=== PATIENT | male | born 1995 | race Caucasian/White ===

== ENCOUNTER 2017-02-10 14:59 | Emergency (ER) | payer OTHER ==
[~2017-02-10] VITALS: Ht 170.2 cm; Wt 56.7 kg
--- NOTE | 2017-02-10 15:00 | NUR ---
BB ROOMATE c/O SUICIDAL THOUGHTS NO PLANS DENIES HI, NAD NOTED, VSS, DR TREVINO AT , BLOOD AND URINE SAMPLE SENT TO LAB.
[2017-02-10] MEDS ORDERED: LORAZEPAM 1 MG TABLET ONE (15:30)
[2017-02-10] MEDS ORDERED: LORAZEPAM 1 MG TABLET PO ONE (15:30)
[2017-02-10 15:43] LABS: ALCOHOL, BLOOD < 3 mg/dL (0-0); CALCIUM, SERUM 10.4 mg/dL (8.5-10.1); CARBON DIOXIDE 24 mmol/L (21-32); CHLORIDE 99 mmol/L (98-107); CREATININE 0.9 mg/dL (0.6-1.3); GLUCOSE 109 mg/dL (74-106); POTASSIUM 3.6 mmol/L (3.5-5.1); SODIUM SERUM 137 mmol/L (136-145); UREA NITROGEN, BLOOD 12 mg/dL (7-18)
[2017-02-10 15:56] LABS: BASOPHILS # (AUTO) 0.1 /CMM (0.0-0.2); BASOPHILS % (AUTO) 1.7 % (0.0-2.0); HEMATOCRIT 48 % (39-51); HEMOGLOBIN 16.4 g/dL (13.5-17.5); LYMPHOCYTES # (AUTO) 1.1 /CMM (0.8-4.8); LYMPHOCYTES % (AUTO) 12.8 % (20.0-44.0); MEAN CORPUSCULAR HEMOGLOBIN 30 PG (26.0-33.0); MEAN CORPUSCULAR HGB CONC 34 g/dl (31.0-36.0); MEAN CORPUSCULAR VOLUME 87 fL (80-96); MONOCYTES # (AUTO) 0.3 /CMM (0.1-1.30); MONOCYTES % (AUTO) 3.5 % (2.0-12.0); PLATELET COUNT (AUTO) 332 /CMM (150-450); RDW COEFFICIENT OF VARIATION 12.4 (11.5-15.0); RED BLOOD CELL COUNT(AUTO) 5.55 MIL/uL (4.5-6.0); WHITE BLOOD COUNT (AUTO) 8.5 K/uL (4.3-11.0)
--- NOTE | 2017-02-10 16:47 | NUR ---
ART AT BS
--- NOTE | 2017-02-10 17:23 | NUR ---
Patient discharged to home in stable condition. Written and verbal after care instructions given. Patient verbalizes understanding of instruction. ambulatory with a steady gait. REFERRALS PROVIDED BY RACHEL NOBLES. PT VERBALIZED UNDERSTANDIG.
[2017-02-10 17:25] VITALS: BP 139/76
== END 2017-02-10 17:26 | disposition home or self-care (01) ==
LOC: ER 15:01
DX: F31.9 Bipolar disorder, unspecified (principal)
CPT/HCPCS: 36415; 80048; 80305; 85025; 99284; A4606; G0480; Z7610

== ENCOUNTER 2017-02-26 20:27 | Emergency (ER) | payer OTHER ==
[~2017-02-26] VITALS: Ht 172.7 cm; Wt 59.0 kg
--- NOTE | 2017-02-26 20:43 | NUR ---
Marisela ghotra in ED - 02/26/17 at 2045 by ROSA ANDRIY GONCALVES AT BEDSIDE.
[2017-02-26] MEDS ORDERED: OLANZAPINE 5 MG TABLET PO ONE (21:00)
[2017-02-26] MEDS ORDERED: OLANZAPINE 5 MG TABLET ONE (21:21)
--- NOTE | 2017-02-26 21:24 | NUR ---
MOLD OPERATOR AT BEDSIDE FOR BLOOD DRAW.
--- NOTE | 2017-02-26 21:25 | NUR ---
PT BIB MOTHER TO ER BED 12. WORSENING DELUSIONS. PER MOTHER WAS RECENTLY DISCHARGE FROM ANOTHER PSYCHIATRIC FACILITY. PT THINKS THAT [facility] IS OUT TO KILL HIM. PT IS [employer]. PLACED ON MONITOR. MOTHER AT BEDSIDE. AWAITING MD JOHNSON.
--- NOTE | 2017-02-26 21:27 | NUR ---
DR PONCE AT BEDSIDE FOR EVAL.
[2017-02-26 21:28] LABS: BASOPHILS % (AUTO) 0.4 % (0.0-2.0); EOSINOPHILS # (AUTO) 0.1 /CMM (0.0-0.7); HEMATOCRIT 45 % (39-51); HEMOGLOBIN 15.5 g/dL (13.5-17.5); LYMPHOCYTES % (AUTO) 21.6 % (20.0-44.0); MEAN CORPUSCULAR HEMOGLOBIN 29 PG (26.0-33.0); MEAN CORPUSCULAR HGB CONC 34 g/dl (31.0-36.0); MEAN CORPUSCULAR VOLUME 86 fL (80-96); MONOCYTES # (AUTO) 0.4 /CMM (0.1-1.30); MONOCYTES % (AUTO) 3.8 % (2.0-12.0); NEUTROPHILS # (AUTO) 6.8 /CMM (1.8-8.9); NEUTROPHILS % (AUTO) 73.2 % (43.0-81.0); PLATELET COUNT (AUTO) 267 /CMM (150-450); RDW COEFFICIENT OF VARIATION 11.6 (11.5-15.0); RED BLOOD CELL COUNT(AUTO) 5.29 MIL/uL (4.5-6.0); WHITE BLOOD COUNT (AUTO) 9.3 K/uL (4.3-11.0)
[2017-02-26 21:38] LABS: CALCIUM, SERUM 9.6 mg/dL (8.5-10.1); CARBON DIOXIDE 24 mmol/L (21-32); CHLORIDE 104 mmol/L (98-107); CREATININE 1.1 mg/dL (0.6-1.3); GLUCOSE 107 mg/dL (74-106); POTASSIUM 3.4 mmol/L (3.5-5.1); SODIUM SERUM 141 mmol/L (136-145); UREA NITROGEN, BLOOD 11 mg/dL (7-18)
[2017-02-26 21:44] LABS: ACETAMINOPHEN < 1 ug/ml (10-30); ALANINE AMINOTRANSFERASE 23 U/L (12-78); ALBUMIN 4.6 g/dL (3.4-5.0); ALCOHOL, BLOOD < 3 mg/dL (0-0); ALKALINE PHOSPHATASE 90 U/L (46-116); ASPARTATE AMINOTRANSFERASE 19 U/L (15-37); BILIRUBIN,DIRECT 0.1 mg/dL (0.0-0.2); BILIRUBIN,TOTAL 0.6 mg/dL (0.2-1.0); SALICYLATE < 1.0 mg/dL (2.8-20.0); TOTAL PROTEIN, SERUM 7.8 g/dL (6.4-8.2)
[2017-02-26 21:45] LABS: APPEARANCE,URINE Clear (CLEAR); BILIRUBIN,URINE Negative (NEGATIVE); BLOOD, URINE Negative Ery/uL (NEGATIVE); COLOR,URINE Light yellow (YELLOW); KETONES,URINE Negative (NEGATIVE); LEUKOCYTE ESTERASE ,URINE Negative (NEGATIVE); NITRITE, URINE Negative (NEGATIVE); PH,URINE 8.5 (5.0-8.0); PROTEIN,URINE Negative (NEGATIVE); UGLUCOSE Negative (NEGATIVE); UROBILINOGEN,URINE 0.2 EU/dL (0.2)
[2017-02-26] MEDS ORDERED: RACEPINEPHRINE HCL 2.25% NEB 0.5 ML VIAL.NEB IH ONE (23:33)
--- NOTE | 2017-02-27 00:35 | NUR ---
REPORT TO CHARGE NURSE SULLY FOR JOSE CARLOS.
--- NOTE | 2017-02-27 01:08 | NUR ---
RACHEL CHASE LCSW CALLED FOR EVAL.
--- NOTE | 2017-02-27 02:00 | NUR ---
ART AT BEDSIDE FOR EVAL.
[2017-02-27 03:57] VITALS: BP 148/74
--- NOTE | 2017-02-27 03:59 | NUR ---
Patient discharged to family for transport home in stable condition. Written and verbal after care instructions given. Patient and family verbalize understanding of instruction. Pt ambulatory with a steady gait. VSS, NAD noted on DC. Denies complaint on DC.
[2017-02-28] MEDS ORDERED: OLANZAPINE 10 MG VIAL IM ONE (20:37)
== END 2017-02-27 04:03 | disposition home or self-care (01) ==
LOC: ER 20:28
DX: F23 Brief psychotic disorder (principal); F20.9 Schizophrenia, unspecified; F31.9 Bipolar disorder, unspecified
CPT/HCPCS: 36415; 80048; 80076; 80305; 80329; 81001; 85025; 99284; A4606; G0480 ×2; Z7610; 81000-TC; J3490

== ENCOUNTER 2017-02-28 19:18 | Emergency (ER) | payer OTHER ==
[~2017-02-28] VITALS: Ht 170.2 cm; Wt 59.0 kg
--- NOTE | 2017-02-28 20:00 | NUR ---
TO BED 8 A 21 YO MALE PATIENT BIBRA 86 FROM HOME C/O +SI -HI NO PLAN AT THIS TIME. NAD NOTED. VSS. BREATHING EVEN AND UNLABORED. SAFETY AND SUICIDE PRECAUTIONS IN PLACE.
[2017-02-28 20:26] LABS: BASOPHILS # (AUTO) 0.1 /CMM (0.0-0.2); BASOPHILS % (AUTO) 1.1 % (0.0-2.0); EOSINOPHILS # (AUTO) 0.1 /CMM (0.0-0.7); EOSINOPHILS % (AUTO) 0.6 % (0.0-6.0); HEMATOCRIT 45 % (39-51); HEMOGLOBIN 15.2 g/dL (13.5-17.5); LYMPHOCYTES # (AUTO) 2.6 /CMM (0.8-4.8); LYMPHOCYTES % (AUTO) 26.8 % (20.0-44.0); MEAN CORPUSCULAR HEMOGLOBIN 29 PG (26.0-33.0); MEAN CORPUSCULAR HGB CONC 34 g/dl (31.0-36.0); MEAN CORPUSCULAR VOLUME 86 fL (80-96); MONOCYTES # (AUTO) 0.5 /CMM (0.1-1.30); NEUTROPHILS # (AUTO) 6.5 /CMM (1.8-8.9); NEUTROPHILS % (AUTO) 66.5 % (43.0-81.0); PLATELET COUNT (AUTO) 286 /CMM (150-450); RDW COEFFICIENT OF VARIATION 11.8 (11.5-15.0); RED BLOOD CELL COUNT(AUTO) 5.22 MIL/uL (4.5-6.0); WHITE BLOOD COUNT (AUTO) 9.8 K/uL (4.3-11.0)
[2017-02-28] MEDS ORDERED: LORAZEPAM 1 MG TABLET ONE (20:29)
[2017-02-28] MEDS ORDERED: LORAZEPAM 1 MG TABLET PO ONE (20:30)
[2017-02-28 20:42] LABS: ALANINE AMINOTRANSFERASE 22 U/L (12-78); ALBUMIN 4.7 g/dL (3.4-5.0); ALCOHOL, BLOOD < 3 mg/dL (0-0); ALKALINE PHOSPHATASE 79 U/L (46-116); ASPARTATE AMINOTRANSFERASE 20 U/L (15-37); BILIRUBIN,DIRECT 0.2 mg/dL (0.0-0.2); BILIRUBIN,TOTAL 1.1 mg/dL (0.2-1.0); CALCIUM, SERUM 9.8 mg/dL (8.5-10.1); CARBON DIOXIDE 25 mmol/L (21-32); CHLORIDE 103 mmol/L (98-107); CREATININE 0.8 mg/dL (0.6-1.3); GLUCOSE 100 mg/dL (74-106); POTASSIUM 3.7 mmol/L (3.5-5.1); SODIUM SERUM 139 mmol/L (136-145); TOTAL PROTEIN, SERUM 7.5 g/dL (6.4-8.2); UREA NITROGEN, BLOOD 13 mg/dL (7-18)
[2017-02-28 20:44] LABS: ACETAMINOPHEN 0 ug/ml (10-30); SALICYLATE < 0.2 mg/dL (2.8-20.0)
--- NOTE | 2017-02-28 20:46 | NUR ---
Patient noted to be restless, agitated, hyperverbal. medicated patient as ordered by Maria Ines Hull.
[2017-02-28] MEDS ORDERED: OLANZAPINE 10 MG VIAL IM ONE (21:00)
[2017-02-28 21:33] LABS: APPEARANCE,URINE Clear (CLEAR); BILIRUBIN,URINE Negative (NEGATIVE); BLOOD, URINE Negative Ery/uL (NEGATIVE); COLOR,URINE Yellow (YELLOW); KETONES,URINE 15 (NEGATIVE); LEUKOCYTE ESTERASE ,URINE Negative (NEGATIVE); NITRITE, URINE Negative (NEGATIVE); PH,URINE 6.5 (5.0-8.0); PROTEIN,URINE Negative (NEGATIVE); UGLUCOSE Negative (NEGATIVE); UROBILINOGEN,URINE 0.2 EU/dL (0.2)
--- NOTE | 2017-02-28 22:00 | NUR ---
CALLED ART SUPERVISOR WHE[employer].
--- NOTE | 2017-03-01 00:31 | NUR ---
Patient discharged to home in stable condition. Written and verbal after care instructions given. Patient verbalizes understanding of instruction. Patient is ambulatory with steady gait, instructed not to drive. Patient to waiting room, calling his mom to pick him up. No further complaints. Nad on dc.
[2017-03-01 00:32] VITALS: BP 135/72
== END 2017-03-01 00:33 | disposition home or self-care (01) ==
LOC: ER 19:19
DX: F29 Unspecified psychosis not due to a substance or known physiological condition (principal); F31.9 Bipolar disorder, unspecified; F17.200 Nicotine dependence, unspecified, uncomplicated
CPT/HCPCS: 36415; 80048-TC; 80076-TC; 80305; 81000-TC; 85025-TC; A4606; G0480; Z7610